=== PATIENT | female | born 1980 | race Caucasian/White ===

== ENCOUNTER 2017-07-29 20:55 | Emergency (ER) | payer MEDICAID ==
[~2017-07-29] VITALS: Ht 177.8 cm; Wt 151.9 kg
[2017-07-29 23:02] VITALS: BP 136/70
== END 2017-07-29 23:02 | disposition home or self-care (01) ==
LOC: ED 20:55
DX: J36 Peritonsillar abscess (principal)
CPT/HCPCS: J1100; J3490